=== PATIENT | female | born 1955 | race Hispanic/Latino ===

== ENCOUNTER → 2019-10-14 | Day surgery (SDC) | payer OTHER ==
[2019-10-11 15:11] LABS: BASOPHILS % 0.4 % (0.0-1.0); EOSINOPHILS # (AUTO) 0.1 (0.0-0.4); EOSINOPHILS % 0.7 % (0.0-6.0); HEMATOCRIT 37.9 % (34.2-44.1); HEMOGLOBIN 11.8 g/dL (12.0-16.0); LYMPHOCYTES # (AUTO) 2.3 (1.0-3.2); LYMPHOCYTES % 26.7 % (18.0-39.1); MEAN CORPUSCULAR HEMOGLOBIN 28.4 pg (28-32); MEAN CORPUSCULAR HGB CONC 31.1 g/dL (31-35); MEAN CORPUSCULAR VOLUME 91.3 fL (81-99); MONOCYTES # (AUTO) 0.8 (0.2-0.8); MONOCYTES % 9.7 % (4.4-11.3); NEUTROPHILS # (AUTO) 5.3 (2.1-6.9); NEUTROPHILS % 62.3 % (38.7-80.0); PLATELET COUNT 277 x10e3/uL (140-360); RED BLOOD COUNT 4.15 x10e6/uL (3.6-5.1); RED CELL DISTRIBUTION WIDTH 14.9 % (11.7-14.4)
[2019-10-11 15:25] LABS: ANION GAP 14.9 mmol/L (8-16); BLOOD UREA NITROGEN 19 mg/dL (7-26); BUN/CREATININE RATIO 23 (6-25); CALCIUM 9.1 mg/dL (8.4-10.2); CARBON DIOXIDE 24 mmol/L (22-29); CHLORIDE 108 mmol/L (98-107); CREATININE, SERUM 0.81 mg/dL (0.57-1.11); EST GLOMERULAR FILTRATION RATE > 60 ML/MIN (60-); POTASSIUM 4.9 mmol/L (3.5-5.1); SODIUM 142 mmol/L (136-145)
--- NOTE | 2019-10-11 15:36 | Diagnostic Imaging Report ---
X-ray chest PA and lateral Comparison: 04/19/2009 History: Foot surgery preop. Findings: Central airways unremarkable. Cardiomediastinal silhouettes unremarkable. Lung vázquez unremarkable. No pleural effusion. No pneumothorax. Possible focal eventration of the right hemidiaphragm. Visualized skeleton and upper abdomen are unremarkable. Impression: No significant acute cardiopulmonary disease. Signed by: Peng Santana MD on 10/11/2019 3:32 PM
[2019-10-11 15:43] LABS: GLUCOSE 46 mg/dL (74-118)
[~2019-10-14] MED LIST: BUPIVACAINE HCL 0.5% INJ 30 ML VIAL INJ ONE; CEFAZOLIN SOD 1 GM/NS 50ML 100 ML IV ONE; DEXAMETHASONE SOD PHOS INJ 4 MG/ML VIAL ONE; DEXTROSE 5% 250ML 250 ML IV ONE; FENTANYL CITRATE/PF 100MCG/2 ML INJ ONE; GLIMEPIRIDE2 MG PO; INVOKAMET XR 11 EAC1 PO; KETOROLAC TROMETHAMINE 30 MG/ML VIAL ONE; LEVOTHYROXINE100 MC1 PO; LIDOCAINE HCL 2% LOCAL INJ 5 ML SDV VIAL INJ ONE; LISINOPRIL10 MG PO; NEOSTIGMINE 1 MG/ML 10ML VIAL ONE; ONDANSETRON HCL INJ 2MG/ML 2ML 2 MG/ML VIAL ONE; PRAVACHOL20 MG PO; ROCURONIUM BROMIDE 10 MG/ML 5ML VIAL IV ONE; SEVOFLURANE INHAL SOLN 250 ML PEN BTL ONE; TRESIBA100 UNIT/1 SC; TRULICITY1.5 MG/0.5 SC
[2019-10-14 13:50] VITALS: BP 111/59
--- NOTE | 2019-10-20 16:40 | Operative Report ---
DATE OF PROCEDURE: 10/14/2019 SURGEON: Robert Harris DPM ROOM NUMBER: [facility]. 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 TITLE OF THE OPERATION: 1. Excision of the plantar fibroma on the right foot. 2. Plantar saucerization bone, right foot. 3. Flap closure, right foot. ANESTHESIA: General endotracheal. HEMOSTASIS: Right thigh tourniquet, 350 mmHg. PROCEDURE IN DETAIL: The patient was taken to the operating room in a mildly sedated state, placed on the operating table in supine position. Following induction of general anesthetic, the right lower extremity was elevated to 60 degrees to exsanguinate before inflating the pneumatic thigh tourniquet. 350 mmHg to create hemostasis. The right lower extremity was placed on the operating table prior to performing following procedure. Procedure #1: Excision of plantar fibroma on the right foot. An approximate 8 cm linear longitudinal incision was made overlying the bony prominence of the plantar aspect of the right foot. The central core was remodeled. The underlying large fibroma was dissected free from underlying soft tissues as well as neurovascular structures. It was then removed and sent to pathology. The underlying tissue was evaluated and and a large bony prominence was delivered in surgical site remodeled with oscillating saw and a rasp. The area was irrigated with copious amounts of sterile saline solution. A plantar saucerization had been performed. A TLS drain and a human tissue allograft were placed and flap closure was made by undermining both medial lateral sides and bring these skin flap together over drain. The area was then treated with a posterior splint. The patient left the operating room, vital signs stable in apparent satisfactory condition, having tolerated both anesthetic and procedure very well. The release of the pneumatic thigh tourniquet showed normal hyperemic flush to all digits of the right foot. KLAUS Mcnulty/KIAN /[id number]
== END | disposition home or self-care (01) ==
LOC: OR 07:28
PROVIDERS: ATTEND Podiatrist Foot Surgery
DX: M72.2 Plantar fascial fibromatosis (principal); G57.61 Lesion of plantar nerve, right lower limb; M19.071 Primary osteoarthritis, right ankle and foot; I10 Essential (primary) hypertension; E11.9 Type 2 diabetes mellitus without complications; Z01.810 Encounter for preprocedural cardiovascular examination; Z01.812 Encounter for preprocedural laboratory examination; Z01.818 Encounter for other preprocedural examination; Z11.59 Encounter for screening for other viral diseases; Z79.4 Long term (current) use of insulin; Z79.84 Long term (current) use of oral hypoglycemic drugs
CPT/HCPCS: 14040; 28062; 28122; 36415 ×2; 71046; 76000; 80048; 82948; 85025; 87635; 88304; 93005; J0690; J1100; J1885; J2001; J2405; J2710; J3010; J7070; V2790